=== PATIENT | female | born 1975 | race Hispanic/Latino ===

== ENCOUNTER 2019-09-26 17:04 | Emergency (ER) | payer SELFPAY ==
[2019-09-26 17:25] VITALS: BP 108/55
--- NOTE | 2019-09-26 18:15 | Emergency Department Report ---
Chief Complaint: Medical Clearance Stated Complaint: right arm bleeding Time Seen by Provider: 09/26/19 18:07 - HPI History of Present Illness: This is a 44 y.o. F. that presents to the ER with bleeding to right AC. Patient states she went to give plasma and bleeding in right AC every since. Patient states it was gushing blood [employer] but stopped. States the swelling improved as well. - Exam Vital Signs: Vital Signs 09/26/19 17:23 Temperature 98.6 F Pulse Rate 95 H Respiratory 16 Rate Blood Pressure 108/55 O2 Sat by Pulse 97 Oximetry MSE screening note: Focused history and physical exam performed. Due to findings the following was ordered: ED Medical Decision Making - Medical Decision Making This is a 44 y.o. F. that presents to the ER with concerns after giving plasma. The right AC was accessed and no signs of swelling, erythema, or active bleeding. This is a non-emergent complaint. Patient instructed to monitor site and apply ice to prevent swelling. Referral to PCP for follow up. She was given strict return instructions. Patient discharged home stable. ED Disposition for [facility] Disposition: MED SCREENING EXAM-LEFT Condition: Stable Additional Instructions: Monitor site for swelling, bruising, or bleeding. If any of these things start return to the ER. Referrals: [facility] [Outside] - 3-5 Days [facility] [Outside] - 3-5 Days [facility] [Outside] - 3-5 Days Time of Disposition: 18:15
== END 2019-09-26 18:35 | disposition left against medical advice (07) ==
LOC: ED 17:04
DX: T85.830A Hemorrhage due to nervous system prosthetic devices, implants and grafts, initial encounter (principal); Y92.89 Other specified places as the place of occurrence of the external cause
CPT/HCPCS: 99281

== ENCOUNTER 2021-11-19 20:39 | Inpatient (IN) | payer SELFPAY ==
[2021-11-19] MEDS ORDERED: SODIUM CHLORIDE 0.9% 1000 ML 1,000 ML IV ONE (21:11)
[2021-11-19] MEDS ORDERED: PANTOPRAZOLE 40 MG INJ IV STA (21:11)
[2021-11-19] MEDS ORDERED: ONDANSETRON 4 MG/2 ML INJ IV ONE (21:11)
[2021-11-19] MEDS ORDERED: PANTOPRAZOLE 80 MG in SODIUM CHLORIDE 0.9% 100 ML IV ONE (21:51)
[2021-11-19 22:07] LABS: INR 1.12 (0.87-1.13)
[2021-11-19 23:19] LABS: Basophils % (Auto) 0.3 % (0.0-1.8); Eosinophils % (Auto) 0.1 % (0.0-4.3); Hematocrit 24.5 % (30.3-42.9); Hemoglobin 8.2 gm/dl (10.1-14.3); Lymphocytes # (Auto) 1.2 K/mm3 (1.2-5.4); Lymphocytes % (Auto) 9.8 % (13.4-35.0); Mean Corpuscular HGB Conc 33 % (30-34); Mean Corpuscular Volume 99 fl (79-97); Monocytes # (Auto) 0.5 K/mm3 (0.0-0.8); Monocytes % (Auto) 3.9 % (0.0-7.3); Platelet Count 232 K/mm3 (140-440); Red Blood Count 2.47 M/mm3 (3.65-5.03); Red Cell Distribution Width 13.5 % (13.2-15.2)
--- NOTE | 2021-11-19 23:27 | Emergency Department Report ---
ED GI Bleed HPI - General Chief complaint: Nausea/Vomiting/Diarrhea Stated complaint: NAUSEA AND VOMITING Time Seen by Provider: 11/19/21 20:54 Source: patient, EMS Mode of arrival: Stretcher Limitations: No Limitations - History of Present Illness Initial comments: Chief complaint: "Everything came out like charcoal." HPI: This 46-year-old female with history of bipolar disorder and benzodiazepine and alcohol dependence who presents black emesis and dark stools since this morning. Patient began to have dark black emesis this morning. Later throu ghout the day, dark stools then ensued. She states that "I am addicted to BC powder." She has daily chronic headaches for the past year. She takes BC powder daily. No previous history of GI bleed. History of tubal ligation. She arrived via EMS. MD complaint: other (Dark emesis, dark stools) -: Gradual, This morning Severity scale (0 -10): 0 Quality: painless Consistency: constant Improves with: none Worsens with: none Context: alcohol abuse (Previous history of alcohol dependence. Last use of alcohol 2015 after rehabilitation.), other (Takes BC powder every day) Associated Symptoms: headaches (Chronic headaches), weakness (Generalized weakness) - Related Data Home Medications Medication Instructions Recorded Confirmed Last Taken Aspirin/Caffeine [Bc Arthritis 1 each PO Q4-6H PRN 04/26/15 04/26/15 04/25/15 Powder Packet] Previous Rx's Medication Instructions Recorded Last Taken Type Butalb/Acetaminophen/Caffeine 1 cap PO Q8HR PRN #20 cap 05/03/15 Unknown Rx [Fioricet 50-300-40 mg CAP] Escitalopram [Lexapro] 10 mg PO DAILY #30 tablet 05/03/15 Unknown Rx Ibuprofen [Motrin] 600 mg PO Q8H PRN #60 tablet 05/03/15 Unknown Rx hydrOXYzine PAMOATE [Vistaril] 50 mg PO Q6HR PRN #60 capsule 05/03/15 Unknown Rx Allergies Allergy/AdvReac Type Severity Reaction Status Date / Time No Known Allergies Allergy Verified 05/03/15 16:13 ED Review of Systems ROS: Stated complaint: NAUSEA AND VOMITING Other details as noted in HPI Comment: All other systems reviewed and negative Constitutional: denies: chills, fever Respiratory: denies: cough, shortness of breath Cardiovascular: denies: chest pain Gastrointestinal: nausea, vomiting, hematemesis, other (Dark watery stools). denies: abdominal pain Neurological: headache (Chronic daily headache) Psychiatric: denies: anxiety, depression, auditory hallucinations, visual hallucinations, homicidal thoughts, suicidal thoughts ED Past Medical Hx - Past Medical History Previous Medical History?: Yes Hx Psychiatric Treatment: Yes (Detox, SI, bipolar disorder) Additional medical history: Polysubstance abuse - Surgical History Past Surgical History?: Yes Additional Surgical History: X 1, tubal ligation - Social History Smoking Status: Current Every Day Smoker Substance Use Type: Marijuana - Medications Home Medications: Home Medications Medication Instructions Recorded Confirmed Last Taken Type Aspirin/Caffeine [Bc Arthritis 1 each PO Q4-6H PRN 04/26/15 04/26/15 04/25/15 History Powder Packet] Butalb/Acetaminophen/Caffeine 1 cap PO Q8HR PRN #20 cap 05/03/15 Unknown Rx [Fioricet 50-300-40 mg CAP] Escitalopram [Lexapro] 10 mg PO DAILY #30 tablet 05/03/15 Unknown Rx Ibuprofen [Motrin] 600 mg PO Q8H PRN #60 tablet 05/03/15 Unknown Rx hydrOXYzine PAMOATE [Vistaril] 50 mg PO Q6HR PRN #60 capsule 05/03/15 Unknown Rx ED Physical Exam - General Limitations: No Limitations General appearance: alert, in no apparent distress, other (GCS 15, speaking full word sentences) - Head Head exam: Present: atraumatic, normocephalic - Eye Eye exam: Present: normal appearance - ENT ENT exam: Present: mucous membranes moist - Neck Neck exam: Present: normal inspection, full ROM - Respiratory Respiratory exam: Present: normal lung sounds bilaterally. Absent: respiratory distress, wheezes, rales, rhonchi - Cardiovascular Cardiovascular Exam: Present: regular rate, normal rhythm, normal heart sounds. Absent: systolic murmur, diastolic murmur, rubs, gallop - GI/Abdominal GI/Abdominal exam: Present: soft, normal bowel sounds. Absent: distended, tenderness, guarding, rebound - Rectal Rectal exam: Present: normal rectal tone, black stool, hemorrhoids, other (Watery grainy black stool) - Extremities Exam Extremities exam: Present: normal inspection - Neurological Exam Neurological exam: Present: alert, oriented X3 - Psychiatric Psychiatric exam: Present: normal affect, normal mood - Skin Skin exam: Present: warm, dry, intact, pallor. Absent: rash ED Course Vital Signs 11/19/21 11/19/21 11/19/21 20:49 21:15 21:17 Temperature 98 F 98.2 F Pulse Rate 120 H 122 H 121 H Respiratory 18 20 20 Rate Blood Pressure 86/54 Blood Pressure 109/40 [Right] O2 Sat by Pulse 100 100 100 Oximetry 11/19/21 11/19/21 11/19/21 21:30 22:00 22:17 Temperature Pulse Rate 119 H 118 H Respiratory 21 25 H Rate Blood Pressure 109/68 109/47 Blood Pressure [Right] O2 Sat by Pulse 100 100 100 Oximetry 11/19/21 11/19/21 11/19/21 22:30 23:00 23:30 Temperature Pulse Rate 99 H 98 H 93 H Respiratory 14 16 14 Rate Blood Pressure 111/58 111/61 103/56 Blood Pressure [Right] O2 Sat by Pulse 100 100 99 Oximetry ED Medical Decision Making - Lab Data Result diagrams: 11/19/21 22:48 11/19/21 22:48 - Medical Decision Making Upper GI bleed: Suspect peptic ulcer disease with history of daily use of BC powder. Type and screen obtained. Protonix bolus and infusion initiated emergency department. I have asked the nurse to place a second peripheral IV. Patient is admitted to the stepdown unit in fair condition. Hemoglobin 14 according to EMR. Hemoglobin 8 today. Normal platelet count. Chemistry notable for elevated BUN which corresponds to prerenal kidney injury due to hypovolemia normal AST AST normal INR mild hypoproteinemia mild hypo albuminemia Dr. Linda mold cleaner consulted. Patient admitted to the [facility]. Patient is admitted to hospital service. Critical Care Time: Yes Critical care time in (mins) excluding proc time.: 40 Critical care attestation.: If time is entered above; I have spent that time in minutes in the direct care of this critically ill patient, excluding procedure time. 40 minutes of critical care time excluding procedures were used in the care of the patient. I came immediately to the bedside upon patient's arrival. I obtained history from EMS at the bedside. I discussed treatment plan with the nursing team members. I reviewed electronic record. IPatient required multiple interventions and reassessments. ED Disposition Clinical Impression: Upper GI bleed Disposition: ADMITTED INPATIENT Is pt being admited?: Yes Condition: Stable Referrals: STORM TIM MD [Primary Care Provider] - 3-5 Days
[2021-11-19 23:32] LABS: Alanine Aminotransferase 8 units/L (7-56); Albumin 3.3 g/dL (3.9-5); Blood Urea Nitrogen 39 mg/dL (7-17); Calcium 7.6 mg/dL (8.4-10.2); Hemolysis Index 3
[2021-11-19 23:52] LABS: BUN/Creatinine Ratio 65
[2021-11-19] MEDS ORDERED: MORPHINE 2 MG/1 ML INJ IV PRN (23:55)
[2021-11-19] MEDS ORDERED: ONDANSETRON 4 MG/2 ML INJ IV PRN (23:55)
[2021-11-19] MEDS ORDERED: MAGNESIUM HYDROXIDE (MOM) ORAL LIQD UDC PO PRN (23:55)
[2021-11-19] MEDS ORDERED: ACETAMINOPHEN 325 MG TAB PO PRN (23:55)
--- NOTE | 2021-11-20 00:02 | History and Physical Report ---
History of Present Illness Date of examination: 11/19/21 Date of admission: 11/19/2021 Chief complaint: Black stool History of present illness: 46-year-old female with known history of bipolar disorder, benzodiazepine and alcohol dependence presents to the emergency room today complaining of black stool and black emesis which started this morning. Patient states that he had what appeared to be black emesis earlier in the day and subsequently started having black stool later today. Patient states that she has chronic headaches and has been taking BC powder for relief. She takes BC powder almost every day. She denies any bright red blood per rectum, no chest pain or shortness of breath, no headache or dizziness and no diaphoresis. Patient denies any fever or chills. Denies any sick contacts and no recent travel. Denies any contact with anyone with COVID-19. She denies having any history of GI bleed. Work-up in the emergency room today, labs were significant for hemoglobin of 8.2 hematocrit of 24.5. Leukocytosis of 12.1. BUN of 39 creatinine of 1.6. Site Technician was consulted by the ER physician regarding the possible GI bleed. Patient had been started on Protonix drip and made n.p.o. Past History Past Medical History: other (Bipolar disorder,Polysubstance Abuse) Past Surgical History: Other ( X 1, tubal ligation) Social history: smoking (Current daily smoker), other (Uses marijuana) Family history: no significant family history Medications and Allergies Allergies Allergy/AdvReac Type Severity Reaction Status Date / Time No Known Allergies Allergy Verified 05/03/15 16:13 Home Medications Medication Instructions Recorded Confirmed Last Taken Type Aspirin/Caffeine [Bc Arthritis 1 each PO Q4-6H PRN 04/26/15 04/26/15 04/25/15 History Powder Packet] Butalb/Acetaminophen/Caffeine 1 cap PO Q8HR PRN #20 cap 05/03/15 Unknown Rx [Fioricet 50-300-40 mg CAP] Escitalopram [Lexapro] 10 mg PO DAILY #30 tablet 05/03/15 Unknown Rx Ibuprofen [Motrin] 600 mg PO Q8H PRN #60 tablet 05/03/15 Unknown Rx hydrOXYzine PAMOATE [Vistaril] 50 mg PO Q6HR PRN #60 capsule 05/03/15 Unknown Rx Active Meds: Active Medications Acetaminophen (Acetaminophen 325 Mg Tab) 650 mg PO Q4H PRN PRN Reason: Pain MILD(1-3)/Fever >100.5/BRITO Pantoprazole Sodium 80 mg/ (Sodium Chloride) 100 mls @ 10 mls/hr IV ONCE ONE; Protocol Stop: 11/20/21 07:50 Last Admin: 11/19/21 21:45 Dose: 8 mg/hr, 10 mls/hr Ondansetron HCl (Ondansetron 4 Mg/2 Ml Inj) 4 mg IV Q8H PRN PRN Reason: Nausea And Vomiting Sodium Chloride (Sodium Chloride 0.9% 10 Ml Flush Syringe) 10 ml IV BID SONIDO Review of Systems Constitutional: no fever, no chills Ears, nose, mouth and throat: no nasal congestion, no sore throat Cardiovascular: no chest pain, no palpitations Respiratory: no cough, no shortness of breath Gastrointestinal: other (Black stool), no abdominal pain, no nausea, no vomiting Genitourinary Female: no pelvic pain, no flank pain, no hematuria Musculoskeletal: no neck pain, no low back pain Integumentary: no rash, no pruritis Neurological: no headaches, no confusion Psychiatric: no anxiety, no depression Endocrine: no polydipsia, no polyuria, no nocturia Exam - Constitutional Vitals: Temp Pulse Resp BP Pulse Ox 98.2 F 93 H 14 103/56 99 11/19/21 21:17 11/19/21 23:30 11/19/21 23:30 11/19/21 23:30 11/19/21 23:30 General appearance: Present: no acute distress, well-nourished - EENT Eyes: Present: PERRL, EOM intact. Absent: scleral icterus - Neck Neck: Present: supple, normal ROM - Respiratory Respiratory effort: normal Respiratory: bilateral: CTA - Cardiovascular Rhythm: regular Heart Sounds: Present: S1 & S2. Absent: gallop, systolic murmur, diastolic murmur, rub, click - Extremities Extremities: no ischemia, pulses intact, pulses symmetrical, No edema, normal temperature, normal color, Full ROM Peripheral Pulses: within normal limits - Abdominal General gastrointestinal: Present: soft, non-tender, non-distended, normal bowel sounds. Absent: mass - Integumentary Integumentary: Present: clear, warm, dry, normal turgor. Absent: rash - Musculoskeletal Musculoskeletal: strength equal bilaterally - Psychiatric Psychiatric: appropriate mood/affect, intact judgment & insight, memory intact, cooperative - Neurologic Neurologic: CNII-XII intact, no focal deficits, moves all extremities Results - Labs CBC & Chem 7: 11/19/21 22:48 11/19/21 22:48 Labs: Abnormal lab results 11/19/21 11/19/21 11/19/21 Range/Units 21:28 22:48 22:48 WBC 12.1 H (4.5-11.0) K/mm3 RBC 2.47 L (3.65-5.03) M/mm3 Hgb 8.2 L (10.1-14.3) gm/dl Hct 24.5 L (30.3-42.9) % MCV 99 H (79-97) fl MCH 33 H (28-32) pg Lymph % (Auto) 9.8 L (13.4-35.0) % Seg Neutrophils % 85.9 H (40.0-70.0) % Seg Neutrophils # 10.4 H (1.8-7.7) K/mm3 PT 15.7 H (12.2-14.9) Sec. APTT 20.0 L (24.2-36.6) Sec. Chloride 111.1 H (98-107) mmol/L Carbon Dioxide 19 L (22-30) mmol/L BUN 39 H (7-17) mg/dL Glucose 102 H (65-100) mg/dL Calcium 7.6 L (8.4-10.2) mg/dL Total Protein 5.3 L (6.3-8.2) g/dL Albumin 3.3 L (3.9-5) g/dL Assessment and Plan - Patient Problems (1) Upper GI bleed Current Visit: Yes Status: Acute Plan to address problem: Possibly secondary to NSAID use. Patient admitted and placed on Protonix drip. We will continue to monitor H&H. Await further evaluation and recommendations by gastroenterology. (2) History of alcohol dependence Current Visit: Yes Status: Acute Plan to address problem: We will place patient on CIWA protocol. (3) DVT prophylaxis Current Visit: Yes Status: Acute Plan to address problem: Patient placed on sequential compression device. (4) Full code status Current Visit: Yes Status: Acute Plan to address problem: Patient is full code.
[2021-11-20] MEDS ORDERED: LORazepam 2 MG/ML VIAL IV PRN ×3 (00:22)
[2021-11-20] MEDS: SODIUM CHLORIDE 0.9% 1000 ML 1,000 ML IV SCH ×2 (02:30→09:51)
[2021-11-20] MEDS: MORPHINE 4 MG/1 ML INJ IV PRN ×2 (02:42→19:51)
[2021-11-20 04:55] LABS: Basophils % (Auto) 0.5 % (0.0-1.8); Eosinophils % (Auto) 0.2 % (0.0-4.3); Hematocrit 22.2 % (30.3-42.9); Hemoglobin 7.5 gm/dl (10.1-14.3); Lymphocytes # (Auto) 2.4 K/mm3 (1.2-5.4); Lymphocytes % (Auto) 24.4 % (13.4-35.0); Mean Corpuscular HGB Conc 34 % (30-34); Mean Corpuscular Volume 99 fl (79-97); Monocytes # (Auto) 0.4 K/mm3 (0.0-0.8); Monocytes % (Auto) 4.5 % (0.0-7.3); Platelet Count 209 K/mm3 (140-440); Red Blood Count 2.24 M/mm3 (3.65-5.03); Red Cell Distribution Width 13.5 % (13.2-15.2)
[2021-11-20 05:12] LABS: BUN/Creatinine Ratio 53; Blood Urea Nitrogen 32 mg/dL (7-17); Calcium 7.9 mg/dL (8.4-10.2); Hemolysis Index 7
--- NOTE | 2021-11-20 09:38 | Progress Note ---
Assessment and Plan Assessment and plan: 46-year-old female with known history of bipolar disorder, benzodiazepine and alcohol dependence presents to the emergency room today complaining of black stool and black emesis which started this morning. Patient states that he had what appeared to be black emesis earlier in the day and subsequently started having black stool later today. Patient states that she has chronic headaches and has been taking BC powder for relief. She takes BC powder almost every day. She denies any bright red blood per rectum, no chest pain or shortness of breath, no headache or dizziness and no diaphoresis. Patient denies any fever or chills. Denies any sick contacts and no recent travel. Denies any contact with anyone with COVID-19. She denies having any history of GI bleed. Work-up in the emergency room today, labs were significant for hemoglobin of 8.2 hematocrit of 24.5. Leukocytosis of 12.1. BUN of 39 creatinine of 1.6. Car Deliverer was consulted by the ER physician regarding the possible GI bleed. Patient had been started on Protonix drip and made n.p.o. 11/20: Continue supportive care. Patient hemodynamically stable will transfer to the medical floor. If endoscopy is not being done today we will go ahead and feed the patient clear liquids and keep n.p.o. after midnight. Will await GI evaluation prior to making this change. We will continue patient on telemetry due to history of alcohol dependence. Will also replace electrolytes such as potassium and check magnesium. (1) Upper GI bleed Current Visit: Yes Status: Acute Plan to address problem: Possibly secondary to NSAID use. Patient admitted and placed on Protonix drip. We will continue to monitor H&H. Await further evaluation and recommendations by gastroenterology. (2) alcohol dependence Current Visit: Yes Status: Acute Plan to address problem: We will place patient on CIWA protocol. (3) acute blood loss anemia secondary to GI (4) systemic inflammatory response syndrome without organ dysfunction next (5) hypokalemia (6) severe protein calorie malnutrition likely secondary to EtOH (7) cachexia BMI 17 point (8) DVT prophylaxis Current Visit: Yes Status: Acute Plan to address problem: Patient placed on sequential compression device. (9) Full code status Current Visit: Yes Status: Acute Plan to address problem: Patient is full code. History Interval history: Patient seen and examined resting comfortably no new complaints. Hospitalist Physical - Physical exam Narrative exam: VITAL SIGNS: Reviewed. GENERAL: The patient appears normally developed, cachexia Vital signs as documented. HEAD: No signs of head trauma. EYES: Pupils are equal. Extraocular motions intact. EARS: Hearing grossly intact. MOUTH: Oropharynx is normal. NECK: No adenopathy, no JVD. CHEST: Chest with clear breath sounds bilaterally. No wheezes, rales, or rhonchi. CARDIAC: Regular rate and rhythm. S1 and S2, without murmurs, gallops, or rubs. VASCULAR: No Edema. Peripheral pulses normal and equal in all extremities. ABDOMEN: Soft, non tender and non distended. No rebound or guarding, and no masses palpated. Bowel Sounds normal. MUSCULOSKELETAL: Good range of motion of all major joints. Extremities without clubbing, cyanosis or edema. NEUROLOGIC EXAM: Alert and oriented x 3 No focal sensory or strength deficits. Speech normal. Follows commands. PSYCHIATRIC: Mood normal. SKIN: detail exam as documented in skin assessment - Constitutional Vitals: Temp Pulse Resp BP Pulse Ox 98.1 F 78 14 102/49 97 11/20/21 08:48 11/20/21 06:20 11/20/21 06:20 11/20/21 06:20 11/20/21 06:20 General appearance: Present: no acute distress, well-nourished Results - Labs CBC & Chem 7: 11/21/21 04:35 11/21/21 04:35 Labs: Laboratory Last Values WBC 9.8 K/mm3 (4.5-11.0) 11/20/21 03:56 RBC 2.24 M/mm3 (3.65-5.03) L 11/20/21 03:56 Hgb 7.5 gm/dl (10.1-14.3) L 11/20/21 03:56 Hct 22.2 % (30.3-42.9) L 11/20/21 03:56 MCV 99 fl (79-97) H 11/20/21 03:56 MCH 33 pg (28-32) H 11/20/21 03:56 MCHC 34 % (30-34) 11/20/21 03:56 RDW 13.5 % (13.2-15.2) 11/20/21 03:56 Plt Count 209 K/mm3 (140-440) 11/20/21 03:56 Lymph % (Auto) 24.4 % (13.4-35.0) 11/20/21 03:56 [place] % (Auto) 4.5 % (0.0-7.3) 11/20/21 03:56 Eos % (Auto) 0.2 % (0.0-4.3) 11/20/21 03:56 Baso % (Auto) 0.5 % (0.0-1.8) 11/20/21 03:56 Lymph # (Auto) 2.4 K/mm3 (1.2-5.4) 11/20/21 03:56 [place] # (Auto) 0.4 K/mm3 (0.0-0.8) 11/20/21 03:56 Eos # (Auto) 0.0 K/mm3 (0.0-0.4) 11/20/21 03:56 Baso # (Auto) 0.0 K/mm3 (0.0-0.1) 11/20/21 03:56 Seg Neutrophils % 70.4 % (40.0-70.0) H 11/20/21 03:56 Seg Neutrophils # 6.9 K/mm3 (1.8-7.7) 11/20/21 03:56 PT 15.7 Sec. (12.2-14.9) H 11/19/21 21:28 INR 1.12 (0.87-1.13) 11/19/21 21:28 APTT 20.0 Sec. (24.2-36.6) L 11/19/21 21:28 Sodium 141 mmol/L (137-145) 11/20/21 03:56 Potassium 3.5 mmol/L (3.6-5.0) L 11/20/21 03:56 Chloride 112.8 mmol/L (98-107) H 11/20/21 03:56 Carbon Dioxide 19 mmol/L (22-30) L 11/20/21 03:56 Anion Gap 13 mmol/L 11/20/21 03:56 BUN 32 mg/dL (7-17) H 11/20/21 03:56 Creatinine 0.6 mg/dL (0.6-1.2) 11/20/21 03:56 Estimated GFR > 60 ml/min 11/20/21 03:56 BUN/Creatinine Ratio 53 % 11/20/21 03:56 Glucose 99 mg/dL (65-100) 11/20/21 03:56 Calcium 7.9 mg/dL (8.4-10.2) L 11/20/21 03:56 Total Bilirubin 0.30 mg/dL (0.1-1.2) 11/19/21 22:48 AST 11 units/L (5-40) 11/19/21 22:48 ALT 8 units/L (7-56) 11/19/21 22:48 Alkaline Phosphatase 40 units/L (35-129) 11/19/21 22:48 Total Protein 5.3 g/dL (6.3-8.2) L 11/19/21 22:48 Albumin 3.3 g/dL (3.9-5) L 11/19/21 22:48 Albumin/Globulin Ratio 1.7 % 11/19/21 22:48 Lipase 17 units/L (13-60) 11/19/21 22:48 Blood Type A POSITIVE 11/19/21 21:37 Antibody Screen Negative 11/19/21 21:37 Microbiology: Microbiology 11/19/21 Unknown Stool Stool Occult Blood (JAIME) - Final Aden/IV: Voiding Method Bedside Commode Active Medications - Current Medications Current Medications: Generic Name Dose Route Start Last Admin Trade Name Freq PRN Reason Stop Dose Admin Acetaminophen 650 mg 11/19/21 23:55 Acetaminophen 325 Mg Tab PO Q4H PRN Pain MILD(1-3)/Fever >100.5/BRITO Sodium Chloride 1,000 mls @ 125 mls/hr 11/19/21 23:45 11/20/21 02:30 Nacl 0.9% 1000 Ml IV 125 mls/hr DIRECT SONIDO Administration Potassium Chloride 10 meq in 100 mls @ 100 mls/hr 11/20/21 10:00 Kcl 10meq/100ml IV 11/20/21 11:59 Q1H SONIDO Lorazepam 2 mg 11/20/21 00:22 Lorazepam 2 Mg/Ml Vial IV Q1HR PRN CIWA-Ar 8-15 Lorazepam 4 mg 11/20/21 00:22 Lorazepam 2 Mg/Ml Vial IV Q1HR PRN CIWA-Ar 16-25 Lorazepam 4 mg 11/20/21 00:22 Lorazepam 2 Mg/Ml Vial IV Q15MIN PRN CIWA-Ar >25 Magnesium Hydroxide 30 ml 11/19/21 23:55 Magnesium Hydroxide (Mom) Oral Liqd Udc PO Q4H PRN Constipation Morphine Sulfate 2 mg 11/19/21 23:55 Morphine 2 Mg/1 Ml Inj IV Q4H PRN Pain, Moderate (4-6) Morphine Sulfate 4 mg 11/19/21 23:55 11/20/21 02:42 Morphine 4 Mg/1 Ml Inj IV 4 mg Q4H PRN Administration Pain , Severe (7-10) Ondansetron HCl 4 mg 11/19/21 23:55 Ondansetron 4 Mg/2 Ml Inj IV Q8H PRN Nausea And Vomiting Sodium Chloride 10 ml 11/20/21 10:00 Sodium Chloride 0.9% 10 Ml Flush Syringe IV BID SONIDO Sodium Chloride 10 ml 11/19/21 23:55 Sodium Chloride 0.9% 10 Ml Flush Syringe IV PRN PRN LINE FLUSH
[2021-11-20] MEDS: POTASSIUM CHLORIDE 10 MEQ 10 MEQ/100 ML BAG IV SCH ×2 (09:51→11:18)
--- NOTE | 2021-11-20 11:27 | Gastroenterology Consultation ---
History of Present Illness - Reason for Consult Consult date: 11/20/21 GI bleed Requesting physician: HANH MARTINEZ - History of Present Illness The patient is a 46 yo wf with past medical history as below presenting with coffee ground emesis and melena. Reports epigastric/luq abd pain starting yesterday, had multiple episodes of melena and coffee ground emesis prior to ED arrival. No episodes overnight. improved abd pain today. h/o alcohol use, bipolar disorder, and chronic migraines for which she takes bc powders daily. denies prior h/o gi bleeding. HD stable at time of exam. Past History Past Medical History: other (Bipolar disorder,Polysubstance Abuse) Past Surgical History: Other ( X 1, tubal ligation) Social history: smoking (Current daily smoker), other (Uses marijuana) Family history: no significant family history Medications and Allergies Allergies Allergy/AdvReac Type Severity Reaction Status Date / Time No Known Allergies Allergy Verified 11/20/21 02:57 Home Medications Medication Instructions Recorded Confirmed Last Taken Type Aspirin/Caffeine [Bc Arthritis 1 each PO BID PRN 04/26/15 11/20/21 11/19/21 History Powder Packet] Active Meds: Active Medications Acetaminophen (Acetaminophen 325 Mg Tab) 650 mg PO Q4H PRN PRN Reason: Pain MILD(1-3)/Fever >100.5/BRITO Sodium Chloride (Nacl 0.9% 1000 Ml) 1,000 mls @ 125 mls/hr IV DIRECT SONIDO Last Admin: 11/20/21 09:51 Dose: 125 mls/hr Potassium Chloride (Kcl 10meq/100ml) 10 meq in 100 mls @ 100 mls/hr IV Q1H SONIDO Stop: 11/20/21 11:59 Last Admin: 11/20/21 11:18 Dose: 100 mls/hr Lorazepam (Lorazepam 2 Mg/Ml Vial) 2 mg IV Q1HR PRN PRN Reason: CIWA-Ar 8-15 Lorazepam (Lorazepam 2 Mg/Ml Vial) 4 mg IV Q1HR PRN PRN Reason: CIWA-Ar 16-25 Lorazepam (Lorazepam 2 Mg/Ml Vial) 4 mg IV Q15MIN PRN PRN Reason: CIWA-Ar >25 Magnesium Hydroxide (Magnesium Hydroxide (Mom) Oral Liqd Udc) 30 ml PO Q4H PRN PRN Reason: Constipation Morphine Sulfate (Morphine 2 Mg/1 Ml Inj) 2 mg IV Q4H PRN PRN Reason: Pain, Moderate (4-6) Morphine Sulfate (Morphine 4 Mg/1 Ml Inj) 4 mg IV Q4H PRN PRN Reason: Pain , Severe (7-10) Last Admin: 11/20/21 02:42 Dose: 4 mg Ondansetron HCl (Ondansetron 4 Mg/2 Ml Inj) 4 mg IV Q8H PRN PRN Reason: Nausea And Vomiting Sodium Chloride (Sodium Chloride 0.9% 10 Ml Flush Syringe) 10 ml IV BID SONIDO Last Admin: 11/20/21 09:52 Dose: 10 ml Sodium Chloride (Sodium Chloride 0.9% 10 Ml Flush Syringe) 10 ml IV PRN PRN PRN Reason: LINE FLUSH Reviewed/updated patient's home and current medications Review of Systems - Review of Systems All systems: negative (per HPI) Exam - Constitutional Vital Signs: Temp Pulse Resp BP Pulse Ox 98.1 F 87 21 101/52 100 11/20/21 08:48 11/20/21 10:20 11/20/21 10:20 11/20/21 10:20 11/20/21 10:20 General appearance: no acute distress - EENT Eyes: PERRL - Respiratory Respiratory effort: normal Respiratory: bilateral: CTA - Cardiovascular Rhythm: regular Heart Sounds: Present: S1 & S2 Extremities: No edema - Gastrointestinal General gastrointestinal: Present: soft, non-tender, non-distended - Integumentary Integumentary: Present: clear, warm - Neurologic Neurological: alert and oriented x3 - Psychiatric Psychiatric: appropriate mood/affect - Labs CBC & Chem 7: 11/20/21 03:56 11/20/21 03:56 Lab Results: Laboratory Results - last 24 hr 11/19/21 11/19/21 11/19/21 21:28 21:37 22:48 WBC 12.1 H RBC 2.47 L Hgb 8.2 L Hct 24.5 L MCV 99 H MCH 33 H MCHC 33 RDW 13.5 Plt Count 232 Lymph % (Auto) 9.8 L [place] % (Auto) 3.9 Eos % (Auto) 0.1 Baso % (Auto) 0.3 Lymph # (Auto) 1.2 [place] # (Auto) 0.5 Eos # (Auto) 0.0 Baso # (Auto) 0.0 Seg Neutrophils % 85.9 H Seg Neutrophils # 10.4 H PT 15.7 H INR 1.12 APTT 20.0 L Sodium Potassium Chloride Carbon Dioxide Anion Gap BUN Creatinine Estimated GFR BUN/Creatinine Ratio Glucose Calcium Magnesium Total Bilirubin AST ALT Alkaline Phosphatase Total Protein Albumin Albumin/Globulin Ratio Lipase Blood Type A POSITIVE Antibody Screen Negative 11/19/21 11/20/21 11/20/21 22:48 03:56 03:56 WBC 9.8 RBC 2.24 L Hgb 7.5 L Hct 22.2 L MCV 99 H MCH 33 H MCHC 34 RDW 13.5 Plt Count 209 Lymph % (Auto) 24.4 [place] % (Auto) 4.5 Eos % (Auto) 0.2 Baso % (Auto) 0.5 Lymph # (Auto) 2.4 [place] # (Auto) 0.4 Eos # (Auto) 0.0 Baso # (Auto) 0.0 Seg Neutrophils % 70.4 H Seg Neutrophils # 6.9 PT INR APTT Sodium 141 141 Potassium 4.1 3.5 L Chloride 111.1 H 112.8 H Carbon Dioxide 19 L 19 L Anion Gap 15 13 BUN 39 H 32 H Creatinine 0.6 0.6 Estimated GFR > 60 > 60 BUN/Creatinine Ratio 65 53 Glucose 102 H 99 Calcium 7.6 L 7.9 L Magnesium Total Bilirubin 0.30 AST 11 ALT 8 Alkaline Phosphatase 40 Total Protein 5.3 L Albumin 3.3 L Albumin/Globulin Ratio 1.7 Lipase 17 Blood Type Antibody Screen 11/20/21 03:56 WBC RBC Hgb Hct MCV MCH MCHC RDW Plt Count Lymph % (Auto) [place] % (Auto) Eos % (Auto) Baso % (Auto) Lymph # (Auto) [place] # (Auto) Eos # (Auto) Baso # (Auto) Seg Neutrophils % Seg Neutrophils # PT INR APTT Sodium Potassium Chloride Carbon Dioxide Anion Gap BUN Creatinine Estimated GFR BUN/Creatinine Ratio Glucose Calcium Magnesium 1.80 Total Bilirubin AST ALT Alkaline Phosphatase Total Protein Albumin Albumin/Globulin Ratio Lipase Blood Type Antibody Screen Assessment and Plan 1. Upper GI bleed 2. Abdominal pain 3. History of alcohol abuse suspect PUD given chronic nsaid/bc powder use. will plan egd today, cont IV PPI drip. consider ct scan of abd based on progress/endoscopy results.
[2021-11-20] MEDS ORDERED: EPINEPHrine 1 MG/10 ML SYRINGE ONE (11:44)
[2021-11-21 05:22] LABS: Hemoglobin 6.1 gm/dl (10.1-14.3); Mean Corpuscular HGB Conc 36 % (30-34); Mean Corpuscular Volume 98 fl (79-97); Platelet Count 141 K/mm3 (140-440); Red Cell Distribution Width 13.3 % (13.2-15.2)
[2021-11-21 05:29] LABS: Red Blood Count 1.79 M/mm3 (3.65-5.03)
[2021-11-21 05:33] LABS: Hematocrit 17.7 % (30.3-42.9)
[2021-11-21 05:40] LABS: Blood Urea Nitrogen 14 mg/dL (7-17); Hemolysis Index 1
[2021-11-21] MEDS ORDERED: SODIUM CHLORIDE 0.9% 500 ML 500 ML IV ONE (05:40)
[2021-11-21] MEDS ORDERED: SODIUM CHLORIDE 0.9% 250ML 250 ML IV ONE (05:40)
[2021-11-21 05:52] LABS: BUN/Creatinine Ratio 28
[2021-11-21] MEDS ORDERED: SODIUM CHLORIDE 0.9% 500 ML 500 ML ONE (06:03)
[2021-11-21] MEDS ORDERED: SODIUM CHLORIDE 0.9% 500 ML 500 ML IV SCH (07:18)
[2021-11-21] MEDS ORDERED: WATER FOR IRRIG STERILE 1,000 ML BOTTLE ONE (08:20)
[2021-11-21] MEDS ORDERED: WATER FOR IRRIG STERILE 250 ML BOTTLE IR ONE (08:20)
--- NOTE | 2021-11-21 08:20 | Progress Note ---
Assessment and Plan Assessment and plan: 46-year-old female with known history of bipolar disorder, benzodiazepine and alcohol dependence presents to the emergency room today complaining of black stool and black emesis which started this morning. Patient states that he had what appeared to be black emesis earlier in the day and subsequently started having black stool later today. Patient states that she has chronic headaches and has been taking BC powder for relief. She takes BC powder almost every day. She denies any bright red blood per rectum, no chest pain or shortness of breath, no headache or dizziness and no diaphoresis. Patient denies any fever or chills. Denies any sick contacts and no recent travel. Denies any contact with anyone with COVID-19. She denies having any history of GI bleed. Work-up in the emergency room today, labs were significant for hemoglobin of 8.2 hematocrit of 24.5. Leukocytosis of 12.1. BUN of 39 creatinine of 1.6. Rail Assembler was consulted by the ER physician regarding the possible GI bleed. Patient had been started on Protonix drip and made n.p.o. 11/20: Continue supportive care. Patient hemodynamically stable will transfer to the medical floor. If endoscopy is not being done today we will go ahead and feed the patient clear liquids and keep n.p.o. after midnight. Will await GI evaluation prior to making this change. We will continue patient on telemetry due to history of alcohol dependence. Will also replace electrolytes such as potassium and check magnesium. 11/21: Patient seen and examined today clinically stable hemoglobin dropped fur ther to 6.1 patient will receive 2 unit packed red blood cell today. She also was hypotensive. Upper endoscopy was done report showed "1. Mild gastritis. Otherwise, unremarkable upper endoscopy. RECOMMENDATIONS: -can resume diet, switch to PPI BID dosing, monitor labs. consider colonoscopy based on progress (either inpatient vs outpatient based on clinical course and follow-up labs). avoid nsaid medications." We will start patient on full liquid diet. Repeat H&H in a.m. can advance diet if no further procedures planned. Patient could also be discharged tomorrow if stable. Extensive discussion with the patient about avoiding BC powder. Again she reports that she has not had any alcohol in the last 1 year. Dietitian consulted due to severe malnutrition to assist with management. Patient clinically stable for transfer to the medical floor PPI changed to twice daily (1) Upper GI bleed Current Visit: Yes Status: Acute Plan to address problem: Possibly secondary to NSAID use. Patient admitted and placed on Protonix drip. We will continue to monitor H&H. Await further evaluation and recommendations by gastroenterology. (2) alcohol dependence Current Visit: Yes Status: Acute Plan to address problem: We will place patient on CIWA protocol. (3) acute blood loss anemia secondary to GI (4) systemic inflammatory response syndrome without organ dysfunction next (5) hypokalemia (6) severe protein calorie malnutrition likely secondary to EtOH (7) cachexia BMI 17 point (8) DVT prophylaxis Current Visit: Yes Status: Acute Plan to address problem: Patient placed on sequential compression device. (9) Full code status Current Visit: Yes Status: Acute Plan to address problem: Patient is full code. History Interval history: Patient seen and examined resting comfortably no new complaints. Upper endoscopy done today. Hospitalist Physical - Physical exam Narrative exam: VITAL SIGNS: Reviewed. GENERAL: The patient appears normally developed, cachexia Vital signs as documented. HEAD: No signs of head trauma. EYES: Pupils are equal. Extraocular motions intact. EARS: Hearing grossly intact. MOUTH: Oropharynx is normal. NECK: No adenopathy, no JVD. CHEST: Chest with clear breath sounds bilaterally. No wheezes, rales, or rhonchi. CARDIAC: Regular rate and rhythm. S1 and S2, without murmurs, gallops, or rubs. VASCULAR: No Edema. Peripheral pulses normal and equal in all extremities. ABDOMEN: Soft, non tender and non distended. No rebound or guarding, and no masses palpated. Bowel Sounds normal. MUSCULOSKELETAL: Good range of motion of all major joints. Extremities without clubbing, cyanosis or edema. NEUROLOGIC EXAM: Alert and oriented x 3 No focal sensory or strength deficits. Speech normal. Follows commands. PSYCHIATRIC: Mood normal. SKIN: detail exam as documented in skin assessment - Constitutional Vitals: Temp Pulse Resp BP Pulse Ox 99 F 75 25 H 104/64 100 11/21/21 08:00 11/21/21 07:00 11/21/21 07:00 11/21/21 07:00 11/21/21 07:00 General appearance: Present: no acute distress, well-nourished Results - Labs CBC & Chem 7: 11/21/21 04:35 11/21/21 04:35 Labs: Laboratory Last Values WBC 4.4 K/mm3 (4.5-11.0) L 11/21/21 04:35 RBC 1.79 M/mm3 (3.65-5.03) L 11/21/21 04:35 Hgb 6.1 gm/dl (10.1-14.3) L 11/21/21 04:35 Hct 17.7 % (30.3-42.9) L* 11/21/21 04:35 MCV 98 fl (79-97) H 11/21/21 04:35 MCH 35 pg (28-32) H 11/21/21 04:35 MCHC 36 % (30-34) H 11/21/21 04:35 RDW 13.3 % (13.2-15.2) 11/21/21 04:35 Plt Count 141 K/mm3 (140-440) 11/21/21 04:35 Lymph % (Auto) 24.4 % (13.4-35.0) 11/20/21 03:56 [place] % (Auto) 4.5 % (0.0-7.3) 11/20/21 03:56 Eos % (Auto) 0.2 % (0.0-4.3) 11/20/21 03:56 Baso % (Auto) 0.5 % (0.0-1.8) 11/20/21 03:56 Lymph # (Auto) 2.4 K/mm3 (1.2-5.4) 11/20/21 03:56 [place] # (Auto) 0.4 K/mm3 (0.0-0.8) 11/20/21 03:56 Eos # (Auto) 0.0 K/mm3 (0.0-0.4) 11/20/21 03:56 Baso # (Auto) 0.0 K/mm3 (0.0-0.1) 11/20/21 03:56 Seg Neutrophils % 70.4 % (40.0-70.0) H 11/20/21 03:56 Seg Neutrophils # 6.9 K/mm3 (1.8-7.7) 11/20/21 03:56 PT 15.7 Sec. (12.2-14.9) H 11/19/21 21:28 INR 1.12 (0.87-1.13) 11/19/21 21:28 APTT 20.0 Sec. (24.2-36.6) L 11/19/21 21:28 Sodium 140 mmol/L (137-145) 11/21/21 04:35 Potassium 3.6 mmol/L (3.6-5.0) 11/21/21 04:35 Chloride 113.8 mmol/L (98-107) H 11/21/21 04:35 Carbon Dioxide 20 mmol/L (22-30) L 11/21/21 04:35 Anion Gap 10 mmol/L 11/21/21 04:35 BUN 14 mg/dL (7-17) 11/21/21 04:35 Creatinine 0.5 mg/dL (0.6-1.2) L 11/21/21 04:35 Estimated GFR > 60 ml/min 11/21/21 04:35 BUN/Creatinine Ratio 28 % 11/21/21 04:35 Glucose 89 mg/dL (65-100) 11/21/21 04:35 Calcium 8.0 mg/dL (8.4-10.2) L 11/21/21 04:35 Magnesium 1.80 mg/dL (1.7-2.3) 11/20/21 03:56 Total Bilirubin 0.30 mg/dL (0.1-1.2) 11/19/21 22:48 AST 11 units/L (5-40) 11/19/21 22:48 ALT 8 units/L (7-56) 11/19/21 22:48 Alkaline Phosphatase 40 units/L (35-129) 11/19/21 22:48 Total Protein 5.3 g/dL (6.3-8.2) L 11/19/21 22:48 Albumin 3.3 g/dL (3.9-5) L 11/19/21 22:48 Albumin/Globulin Ratio 1.7 % 11/19/21 22:48 Lipase 17 units/L (13-60) 11/19/21 22:48 Blood Type A POSITIVE 11/19/21 21:37 Antibody Screen Negative 11/19/21 21:37 Crossmatch See Detail 11/19/21 21:37 Aden/IV: Voiding Method Bedside Commode Active Medications - Current Medications Current Medications: Generic Name Dose Route Start Last Admin Trade Name Freq PRN Reason Stop Dose Admin Acetaminophen 650 mg 11/19/21 23:55 Acetaminophen 325 Mg Tab PO Q4H PRN Pain MILD(1-3)/Fever >100.5/BRITO Sodium Chloride 1,000 mls @ 125 mls/hr 11/19/21 23:45 11/20/21 09:51 Nacl 0.9% 1000 Ml IV 125 mls/hr DIRECT SONIDO Administration Sodium Chloride 500 mls @ 0 mls/hr 11/21/21 07:18 Nacl 0.9% 500 Ml IV 11/21/21 23:59 ONCE SONIDO As Directed Lorazepam 2 mg 11/20/21 00:22 Lorazepam 2 Mg/Ml Vial IV Q1HR PRN CIWA-Ar 8-15 Magnesium Hydroxide 30 ml 11/19/21 23:55 Magnesium Hydroxide (Mom) Oral Liqd Udc PO Q4H PRN Constipation Morphine Sulfate 2 mg 11/19/21 23:55 Morphine 2 Mg/1 Ml Inj IV Q4H PRN Pain, Moderate (4-6) Ondansetron HCl 4 mg 11/19/21 23:55 Ondansetron 4 Mg/2 Ml Inj IV Q8H PRN Nausea And Vomiting Sodium Chloride 10 ml 11/20/21 10:00 11/21/21 00:16 Sodium Chloride 0.9% 10 Ml Flush Syringe IV Not Given BID SONIDO Sodium Chloride 10 ml 11/19/21 23:55 Sodium Chloride 0.9% 10 Ml Flush Syringe IV PRN PRN LINE FLUSH
[2021-11-21] MEDS ORDERED: SODIUM CHLORIDE 0.9% 1000 ML 1,000 ML IV ONE (08:30)
[2021-11-21] MEDS ORDERED: EPINEPHrine 1 MG/10 ML SYRINGE ONE (08:35)
--- NOTE | 2021-11-21 08:38 | Anesthesia Consultation ---
Anesthesia Consult and Med Hx Date of service: 11/21/21 - Airway Anesthetic Teeth Evaluation: Good (some missing teeth) ROM Head & Neck: Adequate Mental/Hyoid Distance: Adequate Mallampati Class: Class II Intubation Access Assessment: Probably Good - Pre-Operative Health Status ASA Pre-Surgery Classification: ASA2, Emergency Proposed Anesthetic Plan: MAC - Pulmonary Hx Smoking: Yes (1 pack/day x 6 years) Hx Asthma: No COPD: No Hx Pneumonia: No - Central Nervous System Hx Psychiatric Problems: Yes (bipolar disorder) - Gastrointestinal Hx Ulcer: Yes (Upper GI bleeding) - Endocrine Hx End Stage Renal Disease: No - Hematic Hx Anemia: Yes - Other Systems Hx Alcohol Use: Yes (Quit 2015) Hx Substance Use: Yes (Marijuana, h/o cocaine, Quit 2015)
--- NOTE | 2021-11-21 08:40 | Anesthesia Day of Surgery ---
Anesthesia Day of Surgery - Day of Surgery Patient Examined: Yes Patient H&P Reviewed: Yes Patient is NPO: Yes
[2021-11-21] MEDS ORDERED: propofoL 200 MG/20 ML VIAL IV ONE ×2 (08:41→08:42)
[2021-11-21] MEDS ORDERED: PANTOPRAZOLE 80 MG in SODIUM CHLORIDE 0.9% 100 ML IV SCH (09:00)
--- NOTE | 2021-11-21 09:12 | Operative Report ---
Operative Report Operative Report: Esophagogastroduodenoscopy Procedure Note Date of procedure: 11/21/2021 Endoscopist: Dennis Linda Pre-op diagnosis/indication: GI bleed, melena Post-op diagnosis: Gastritis MEDICATIONS: MAC COMPLICATIONS: No immediate complications ESTIMATED BLOOD LOSS: None DESCRIPTION OF PROCEDURE: After consent was obtained, the patient was placed in the left lateral decubitis position. The olympus endoscope was inserted into the patient's mouth under direct vision and advanced to the 2nd portion of the duodenum without difficulty. The patient tolerated the procedure well. The views of the mucosa were good. The patient's vital signs were monitored continuously throughout the procedure. FINDINGS: The esophagus appeared normal. There was mild erythematous mucosa in the antrum. Otherwise, the stomach appeared normal. The duodenum appeared normal. IMPRESSION: 1. Mild gastritis. Otherwise, unremarkable upper endoscopy. RECOMMENDATIONS: -can resume diet, switch to PPI BID dosing, monitor labs. consider colonoscopy based on progress (either inpatient vs outpatient based on clinical course and follow-up labs). avoid nsaid medications.
--- NOTE | 2021-11-21 10:25 | Post Anesthesia Evaluation ---
- Post Anesthesia Evaluation Patient Participated: Yes Airway Patent: Yes Stable Respiratory Function: Yes Nausea/Vomiting: No Temp > 96.8F: Yes Pain Manageable: Yes Adequeate Hydration: Yes Anesthesia Complications: No Block Receding Appropriately: Not Applicable Patient on Ventilator: No
[2021-11-21] MEDS: PANTOPRAZOLE 40 MG INJ IV SCH ×2 (11:33→21:26)
[2021-11-22] MEDS: SODIUM CHLORIDE 0.9% 1000 ML 1,000 ML IV SCH ×2 (01:37→09:19)
[2021-11-22 06:43] LABS: Hematocrit 25.3 % (30.3-42.9); Hemoglobin 8.8 gm/dl (10.1-14.3); Mean Corpuscular HGB Conc 35 % (30-34); Mean Corpuscular Volume 93 fl (79-97); Platelet Count 137 K/mm3 (140-440); Red Blood Count 2.71 M/mm3 (3.65-5.03); Red Cell Distribution Width 14.5 % (13.2-15.2)
[2021-11-22 07:03] LABS: Blood Urea Nitrogen 5 mg/dL (7-17); Hemolysis Index 2
[2021-11-22 07:04] LABS: BUN/Creatinine Ratio 10
[2021-11-22] MEDS ORDERED: POTASSIUM CHLORIDE ER 20 MEQ TAB PO NR (08:00)
[2021-11-22] MEDS: PANTOPRAZOLE 40 MG INJ IV SCH (09:20)
[2021-11-22] MEDS ORDERED: PANTOPRAZOLE 40 MG TAB PO SCH (16:30)
--- NOTE | 2021-11-22 17:08 | Progress Note ---
Assessment and Plan Assessment and plan: 46-year-old female with known history of bipolar disorder, benzodiazepine and alcohol dependence presents to the emergency room today complaining of black stool and black emesis which started this morning. Patient states that he had what appeared to be black emesis earlier in the day and subsequently started having black stool later today. Patient states that she has chronic headaches and has been taking BC powder for relief. She takes BC powder almost every day. She denies any bright red blood per rectum, no chest pain or shortness of breath, no headache or dizziness and no diaphoresis. Patient denies any fever or chills. Denies any sick contacts and no recent travel. Denies any contact with anyone with COVID-19. She denies having any history of GI bleed. Work-up in the emergency room revealing labs were significant for hemoglobin of 8.2 hematocrit of 24.5. Leukocytosis of 12.1. BU N of 39 creatinine of 1.6. 11/20: Continue supportive care. Patient hemodynamically stable will transfer to the medical floor. If endoscopy is not being done today we will go ahead and feed the patient clear liquids and keep n.p.o. after midnight. Will await GI evaluation prior to making this change. We will continue patient on telemetry due to history of alcohol dependence. Will also replace electrolytes such as potassium and check magnesium. 11/21: Patient seen and examined today clinically stable hemoglobin dropped further to 6.1 patient will receive 2 unit packed red blood cell today. She also was hypotensive. Upper endoscopy was done report showed "1. Mild gastritis. Otherwise, unremarkable upper endoscopy. 11/22: IV fluids discontinued. PPI transition to orals. Transitioning from full liquid diet to regular diet. Planning for discharge tomorrow morning. #Upper GI bleedresolved Possibly secondary to NSAID use. Patient admitted and placed on Protonix drip. We will continue to monitor H&H. Await further evaluation and recommendations by gastroenterology. #Alcohol dependence We will place patient on CIWA protocol. #Acute blood loss anemia secondary to GIresolved #Systemic inflammatory response syndrome without organ dysfunction nextresolved #Hypokalemia-repleting. We will monitor with BMP in the morning. #Severe protein calorie malnutrition likely secondary to EtOH dependence #Cachexia BMI 17 point #Advanced care planning -Disease education conducted, care plan discussed, diagnoses discussed, prognosis discussed, and patient acknowledges understanding with care plan -Time: +30 min #Discharge planning - Patient is ability to tolerate regular diet - Case management has been made aware. - Discharge is tentatively tomorrow morning Disposition Plan: Pending discharge tomorrow Total Time Spent with Patient (Minutes): 30 minutes History Interval history: Patient underwent upper endoscopy revealing mild gastritis but no apparent ulcers or site of bleeding. Patient tolerated procedure well. Hospitalist Physical - Constitutional Vitals: Temp Pulse Resp BP Pulse Ox 98.3 F 84 16 107/62 100 11/22/21 04:59 11/22/21 04:59 11/22/21 04:59 11/22/21 04:59 11/22/21 07:57 General appearance: Present: no acute distress, cachectic - EENT Eyes: Present: PERRL, EOM intact ENT: hearing intact, clear oral mucosa - Neck Neck: Present: supple, normal ROM - Respiratory Respiratory effort: normal Respiratory: bilateral: CTA - Cardiovascular Rhythm: regular Heart Sounds: Present: S1 & S2 - Extremities Extremities: no ischemia, pulses intact, pulses symmetrical, No edema, normal temperature, normal color, Full ROM Peripheral Pulses: within normal limits - Abdominal General gastrointestinal: soft, non-tender, non-distended, normal bowel sounds - Integumentary Integumentary: Present: clear, warm, dry - Psychiatric Psychiatric: appropriate mood/affect, intact judgment & insight, memory intact, cooperative - Neurologic Neurologic: CNII-XII intact, moves all extremities - Allied Health Allied health notes reviewed: nursing Results - Labs CBC & Chem 7: 11/22/21 06:30 11/22/21 06:30 Labs: Laboratory Last Values WBC 3.4 K/mm3 (4.5-11.0) L 11/22/21 06:30 RBC 2.71 M/mm3 (3.65-5.03) L 11/22/21 06:30 Hgb 8.8 gm/dl (10.1-14.3) L 11/22/21 06:30 Hct 25.3 % (30.3-42.9) L D 11/22/21 06:30 MCV 93 fl (79-97) 11/22/21 06:30 MCH 33 pg (28-32) H 11/22/21 06:30 MCHC 35 % (30-34) H 11/22/21 06:30 RDW 14.5 % (13.2-15.2) 11/22/21 06:30 Plt Count 137 K/mm3 (140-440) L 11/22/21 06:30 Lymph % (Auto) 24.4 % (13.4-35.0) 11/20/21 03:56 [place] % (Auto) 4.5 % (0.0-7.3) 11/20/21 03:56 Eos % (Auto) 0.2 % (0.0-4.3) 11/20/21 03:56 Baso % (Auto) 0.5 % (0.0-1.8) 11/20/21 03:56 Lymph # (Auto) 2.4 K/mm3 (1.2-5.4) 11/20/21 03:56 [place] # (Auto) 0.4 K/mm3 (0.0-0.8) 11/20/21 03:56 Eos # (Auto) 0.0 K/mm3 (0.0-0.4) 11/20/21 03:56 Baso # (Auto) 0.0 K/mm3 (0.0-0.1) 11/20/21 03:56 Seg Neutrophils % 70.4 % (40.0-70.0) H 11/20/21 03:56 Seg Neutrophils # 6.9 K/mm3 (1.8-7.7) 11/20/21 03:56 PT 15.7 Sec. (12.2-14.9) H 11/19/21 21:28 INR 1.12 (0.87-1.13) 11/19/21 21:28 APTT 20.0 Sec. (24.2-36.6) L 11/19/21 21:28 Sodium 141 mmol/L (137-145) 11/22/21 06:30 Potassium 3.4 mmol/L (3.6-5.0) L 11/22/21 06:30 Chloride 112.9 mmol/L (98-107) H 11/22/21 06:30 Carbon Dioxide 20 mmol/L (22-30) L 11/22/21 06:30 Anion Gap 12 mmol/L 11/22/21 06:30 BUN 5 mg/dL (7-17) L 11/22/21 06:30 Creatinine 0.5 mg/dL (0.6-1.2) L 11/22/21 06:30 Estimated GFR > 60 ml/min 11/22/21 06:30 BUN/Creatinine Ratio 10 % 11/22/21 06:30 Glucose 88 mg/dL (65-100) 11/22/21 06:30 Calcium 8.0 mg/dL (8.4-10.2) L 11/22/21 06:30 Magnesium 1.80 mg/dL (1.7-2.3) 11/20/21 03:56 Total Bilirubin 0.30 mg/dL (0.1-1.2) 11/19/21 22:48 AST 11 units/L (5-40) 11/19/21 22:48 ALT 8 units/L (7-56) 11/19/21 22:48 Alkaline Phosphatase 40 units/L (35-129) 11/19/21 22:48 Total Protein 5.3 g/dL (6.3-8.2) L 11/19/21 22:48 Albumin 3.3 g/dL (3.9-5) L 11/19/21 22:48 Albumin/Globulin Ratio 1.7 % 11/19/21 22:48 Lipase 17 units/L (13-60) 11/19/21 22:48 Blood Type A POSITIVE 11/19/21 21:37 Antibody Screen Negative 11/19/21 21:37 Crossmatch See Detail 11/19/21 21:37 Aden/IV: Voiding Method Toilet Active Medications - Current Medications Current Medications: Generic Name Dose Route Start Last Admin Trade Name Freq PRN Reason Stop Dose Admin Acetaminophen 650 mg 11/19/21 23:55 Acetaminophen 325 Mg Tab PO Q4H PRN Pain MILD(1-3)/Fever >100.5/BRITO Lorazepam 2 mg 11/20/21 00:22 Lorazepam 2 Mg/Ml Vial IV Q1HR PRN CIWA-Ar 8-15 Magnesium Hydroxide 30 ml 11/19/21 23:55 Magnesium Hydroxide (Mom) Oral Liqd Udc PO Q4H PRN Constipation Morphine Sulfate 2 mg 11/19/21 23:55 Morphine 2 Mg/1 Ml Inj IV Q4H PRN Pain, Moderate (4-6) Ondansetron HCl 4 mg 11/19/21 23:55 Ondansetron 4 Mg/2 Ml Inj IV Q8H PRN Nausea And Vomiting Pantoprazole Sodium 40 mg 11/22/21 16:30 Pantoprazole 40 Mg Tab PO BIDAC SONIDO Sodium Chloride 10 ml 11/20/21 10:00 11/21/21 21:26 Sodium Chloride 0.9% 10 Ml Flush Syringe IV 10 ml BID SONIDO Administration Sodium Chloride 10 ml 11/19/21 23:55 Sodium Chloride 0.9% 10 Ml Flush Syringe IV PRN PRN LINE FLUSH Nutrition/Malnutrition Assess - Dietary Evaluation Nutrition/Malnutrition Findings: Nutrition Notes Start: 11/21/21 11:47 Freq: Status: Active Protocol: Document 11/21/21 11:47 JODI (Rec: 11/21/21 12:13 JODI [id number]) Nutrition Notes Need for Assessment generated from: MD Order,Low BMI Initial or Follow up Assessment Current Diagnosis Malnutrition Other Pertinent Diagnosis GI bleed, SIRS, Cachexia, Anemia, EtOH dependance, Bipolar Disorder. Current Diet Full Liquids Diet (since L ). Labs/Tests 11/21: Cl 113.8, CO2 20, Crea 0.5, Ca 8.0. Pertinent Medications 11/21: Nutritionally unremarkable. Height 5 ft 8 in Weight 53.4 kg [place] Body Weight (kg) 63.63 BMI 17.9 Intake Prior to Admission Poor Weight change and time frame Pt states having loss unintentionally between 2 and 13 lb recently. Weight Status Underweight Subjective/Other Information RD consult for Low BMI assessment and malnutrition assessment. No reports available on PT's PO intake of meals at the time . Pt uses NSAIDs in excess, as well as EtOH and Bemzodiacepine, according to Progress notes. Procedure on 11/21: EGD due to GI bleed -melena-. Well tolerated. Findings: Mild Gastritis, according to Progress notes and Operative report. Pt can resume PO diet and avance tomorrow with solid foods, according to Progress notes. Pt's Low BMI seems to correspond to a natural body composition, and not exclusivelly related to the recent claimed loss of body weight nor chronic malnutrition, since none were mentioned in the Physical Assessment History or the Progress notes. Will F/U on PO intake of meals and tolerance, and the need for ONS. Percent of energy/protein needs met: Prescribed Full Liquids Diet provides for energy/protein needs (1,155 Kcal/37 g) during LOS. Burn Absent Trauma Absent GI Symptoms Diarrhea Food Allergy No Skin Integrity/Comment Assessment WNL. Minimum of two criteria No Interpretation of Weight Loss (non- 10% in 6 months severe) Protein-Calorie Malnutrition N\\A #1 Nutrition Diagnosis No nutrition diagnosis at this time Comments: Will F/U on PO intake of meals and tolerance, and the need for ONS. Is patient on ventilator? No Is Patient Ambulatory and/or Out of Bed Yes REE-(Dodge-St. Jeor-ambulatory/OOB) [ 1595.750 NUTR.MSJOOB] Kcal/Kg value to use for calculation 35 Approximate Energy Requirements Using 1869 kcal/Kg Calculation Used for Recommendations Kcal/kg Additional Notes Protein: 1.2-1.5 g/Kg ABW; 66- 80 g/day. Fluids: 1 ml/Kcal, or as per MD. Nutrition Intervention Change Diet Order: Continue Full Liquids Diet, and when pertinent, advance to Regular Diet. Goal #1 Facilitate PO intake of meals with elemental or mechanical modification during LOS. Goal #2 Maintain body weight within +/ -3% of admission body weight during LOS. Follow-Up By: 11/23/21 Additional Comments Continue monitoring food tolerance, %PO intake of meals , and BM.
--- NOTE | 2021-11-22 17:16 | Discharge Summary ---
Providers - Providers Date of Admission: 11/19/21 23:56 Date of discharge: 11/23/21 Attending physician: SALLY ALVARADO MD 11/19/21 23:53 Consult to Physician [CONS] Stat Comment: Dr. Almodovar spoke with Dr. Linda @ [phone] Consulting Provider: BENJAMIN LINDA Physician Instructions: Reason For Exam: UGIB 11/21/21 10:48 Consult to Dietitian/Nutrition [CONS] Routine Physician Instructions: Reason For Exam: Reason for Consult: Malnutrition Primary care physician: STORM TIM Hospitalization Reason for admission: Upper GI bleed Condition: Stable Pertinent studies: Reviewed. Procedures: Upper endoscopy Hospital course: Patient is a 46-year-old female past medical history of bipolar disorder, alcohol dependence, benzodiazepine dependence, and severe protein caloric malnutrition who presented to the emergency room with complaints of black stools and black emesis that started earlier that morning. Patient endorses having chronic headaches and has been taking BC powder for relief daily for approximately 1 year. On presentation the patient had a hemoglobin of 8.2 and creatinine of 1.6. Gastroenterology was consulted for endoscopy. The patient's hemoglobin continued to drop to 6.2, requiring transfusion of 2 units packed RBCs. The patient began displaying signs of hypotension. Upper endoscopy was performed on 11/21/2021 revealing mild gastritis but mostly unremarkable. Patient was transitioned from a full liquid diet to regular diet and to oral PPIs. The patient was counseled at length about the importance avoiding NSAIDs and being compliant with PPIs. Patient expressed understanding. Disposition: 01 HOME / SELF CARE / HOMELESS Final Discharge Diagnosis (Prints w/discharge instructions): Upper GI bleed, alcohol dependence, acute blood loss anemia, SIRS without organ dysfunction, hypokalemia, severe protein caloric malnutrition Time spent for discharge: 45 minutes Core Measure Documentation - Palliative Care Palliative Care/ Comfort Measures: Not Applicable - Core Measures Any of the following diagnoses?: none Exam - Constitutional Vitals: Temp Pulse Resp BP Pulse Ox 98.3 F 84 16 107/62 100 11/22/21 04:59 11/22/21 04:59 11/22/21 04:59 11/22/21 04:59 11/22/21 07:57 General appearance: Present: no acute distress, cachectic - EENT Eyes: Present: PERRL, EOM intact ENT: hearing intact, clear oral mucosa, dentition normal - Neck Neck: Present: supple, normal ROM - Respiratory Respiratory effort: normal - Cardiovascular Rhythm: regular Heart Sounds: Present: S1 & S2 - Extremities Extremities: no ischemia, pulses intact, pulses symmetrical, No edema, normal temperature, normal color Peripheral Pulses: within normal limits - Abdominal General gastrointestinal: Present: soft, non-tender, non-distended, normal bowel sounds Female genitourinary: Present: deferred - Rectal Rectal Exam: deferred - Integumentary Integumentary: Present: clear, warm, dry - Musculoskeletal Musculoskeletal: strength equal bilaterally - Psychiatric Psychiatric: appropriate mood/affect, intact judgment & insight, memory intact, cooperative - Neurologic Neurologic: CNII-XII intact, moves all extremities - Allied Health Allied health notes reviewed: nursing Plan Activity: no restrictions Diet: regular Special Instructions: other (Discontinue Aleve, Motrin, BC powder/Goody powder, ibuprofen) Additional Instructions: Patient is a 46-year-old female past medical history of bipolar disorder, alcohol dependence, benzodiazepine dependence, and severe protein caloric malnutrition who presented to the emergency room with complaints of black stools and black emesis that started earlier that morning. Patient endorses having chronic headaches and has been taking BC powder for relief daily for approximately 1 year. On presentation the patient had a hemoglobin of 8.2 and creatinine of 1.6. Gastroenterology was consulted for endoscopy. The patient's hemoglobin continued to drop to 6.2, requiring transfusion of 2 units packed RBCs. The patient began displaying signs of hypotension. Upper endoscopy was performed on 11/21/2021 revealing mild gastritis but mostly unremarkable. Patient was transitioned from a full liquid diet to regular diet and to oral PPIs. The patient was counseled at length about the importance avoiding NSAIDs and being compliant with PPIs. Patient expressed understanding. Care Plan Goals: Patient is medically clear for discharge. Assessment: Patient is a 46-year-old female past medical history of bipolar disorder, alcohol dependence, benzodiazepine dependence, and severe protein caloric malnutrition who presented to the emergency room with complaints of black stools and black emesis that started earlier that morning. Patient endorses having chronic headaches and has been taking BC powder for relief daily for approximately 1 year. On presentation the patient had a hemoglobin of 8.2 and creatinine of 1.6. Gastroenterology was consulted for endoscopy. The patient's hemoglobin continued to drop to 6.2, requiring transfusion of 2 units packed RBCs. The patient began displaying signs of hypotension. Upper endoscopy was performed on 11/21/2021 revealing mild gastritis but mostly unremarkable. Patient was transitioned from a full liquid diet to regular diet and to oral PPIs. The patient was counseled at length about the importance avoiding NSAIDs and being compliant with PPIs. Patient expressed understanding. Follow up with: STORM TIM MD [Primary Care Provider] - 3-5 Days BENJAMIN LINDA MD [Staff Physician] - 6 Weeks Forms: Work/School Release Form Prescriptions: Pantoprazole [Protonix TAB] 40 mg PO BIDAC #60 tablet
--- NOTE | 2021-11-22 17:40 | Gastroenterology Progress Note ---
Assessment and Plan anemia/coffee ground emesis - negative egd. stable labs without overt gi bleeding, tolerating po. f/u in gi clinic in 2 weeks. will need colonoscopy as outpatient. will sign off, please call as needed. Subjective Date of service: 11/22/21 Principal diagnosis: anemia Interval history: pt feels well, no further signs of n/v or possible gi bleeding last couple days. tolerating po Objective - Constitutional Vitals: Temp Pulse Resp BP Pulse Ox 98.3 F 84 16 107/62 100 11/22/21 04:59 11/22/21 04:59 11/22/21 04:59 11/22/21 04:59 11/22/21 07:57 General appearance: no acute distress - Respiratory Respiratory effort: normal Respiratory: bilateral: CTA - Cardiovascular Rhythm: regular Heart Sounds: Present: S1 & S2 - Gastrointestinal General gastrointestinal: Present: soft, non-tender - Labs CBC & Chem 7: 11/22/21 06:30 11/22/21 06:30 Labs: Laboratory Results - last 24 hr 11/19/21 11/22/21 11/22/21 21:37 06:30 06:30 WBC 3.4 L RBC 2.71 L Hgb 8.8 L Hct 25.3 L D MCV 93 MCH 33 H MCHC 35 H RDW 14.5 Plt Count 137 L Sodium 141 Potassium 3.4 L Chloride 112.9 H Carbon Dioxide 20 L Anion Gap 12 BUN 5 L Creatinine 0.5 L Estimated GFR > 60 BUN/Creatinine Ratio 10 Glucose 88 Calcium 8.0 L Blood Type A POSITIVE Antibody Screen Negative Crossmatch See Detail
[2021-11-23 06:12] VITALS: BP 109/53
[2021-11-23 07:11] LABS: Hematocrit 27.6 % (30.3-42.9); Hemoglobin 9.5 gm/dl (10.1-14.3)
[2021-11-23 07:31] LABS: Blood Urea Nitrogen 6 mg/dL (7-17); Calcium 8.1 mg/dL (8.4-10.2); Hemolysis Index 3
[2021-11-23 07:46] LABS: BUN/Creatinine Ratio 10
== END 2021-11-23 12:09 | disposition home or self-care (01) | DRG 377 ==
LOC: ED 20:39 → IMCU 23:56 → CC1 11-20 00:36 → 3A 11-21 12:45
PROVIDERS: ADMIT Internal Medicine Geriatric Medicine; ATTEND Student in an Organized Health Care Education/Training Program
PROC: 30233N1 Transfusion of Nonautologous Red Blood Cells into Peripheral Vein, Percutaneous Approach (ICD-10-PCS; principal; 2021-11-21)
PROC: 0DJ08ZZ Inspection of Upper Intestinal Tract, Via Natural or Artificial Opening Endoscopic (ICD-10-PCS; 2021-11-21)
DX: K29.71 Gastritis, unspecified, with bleeding (principal); E43 Unspecified severe protein-calorie malnutrition; D62 Acute posthemorrhagic anemia; Z68.1 Body mass index [BMI] 19.9 or less, adult; R65.10 Systemic inflammatory response syndrome (SIRS) of non-infectious origin without acute organ dysfunction; E87.6 Hypokalemia; Z98.51 Tubal ligation status; F17.200 Nicotine dependence, unspecified, uncomplicated; Z79.82 Long term (current) use of aspirin; F31.9 Bipolar disorder, unspecified; F10.20 Alcohol dependence, uncomplicated; Y90.9 Presence of alcohol in blood, level not specified
CPT/HCPCS: 36415; 80048; 80053; 82270; 83690; 83735; 85014; 85018; 85025; 85027; 85610; 85730; 86850; 86900; 86901; 86920; 99406; G0378; J7120; Q0162; C9113; J0171; J2270; J2405; J2704; J3480; J7030; J7040; J7050; P9016